=== PATIENT | female | born 1985 | race Two or more races ===

== ENCOUNTER → 2025-01-01 | Day surgery (SDC) | payer OTHER ==
[2024-12-27 11:41] VITALS: BP 122/81
[~2025-01-01] VITALS: Ht 172.7 cm; Wt 83.9 kg
[~2025-01-01] MED LIST: BUPIVACAINE HCL/MPF 0.5% 30ML VIAL ONE; CEFADROXIL 500 MG CAPSULE PO SCH; CEFAZOLIN SODIUM 1,000 MG VIAL IV ONE; CEFAZOLIN SODIUM 1,000 MG VIAL ONE; DUI500 PO; EPINEPHRINE HCL/PF 1 MG/ML AMPUL ONE; MEPERIDINE HCL/PF 25 MG/ML VIAL IM PRN; METHYLPREDNISOLONE ACETATE 80 MG/ML VIAL ONE; PROMETHAZINE HCL 25 MG/ML AMPUL IM PRN; TRAM1TAB98 PO
== END | disposition home or self-care (01) ==
LOC: CIR.AMB 06:18
PROVIDERS: ATTEND Orthopaedic Surgery Sports Medicine
DX: M23.312 Other meniscus derangements, anterior horn of medial meniscus, left knee (principal); M65.862 Other synovitis and tenosynovitis, left lower leg